=== PATIENT | female | born 1970 | race Caucasian/White ===

== ENCOUNTER 2018-03-23 19:03 | Emergency (ER) | payer SELFPAY ==
[2018-03-23 20:32] LABS: Basophils % (Auto) 0.5 % (0.0-1.8); Eosinophils # (Auto) 0.2 K/mm3 (0.0-0.4); Eosinophils % (Auto) 2.3 % (0.0-4.3); Hematocrit 45.8 % (30.3-42.9); Hemoglobin 15.4 gm/dl (10.1-14.3); Lymphocytes # (Auto) 2.3 K/mm3 (1.2-5.4); Lymphocytes % (Auto) 27.8 % (13.4-35.0); Mean Corpuscular HGB Conc 34 % (30-34); Mean Corpuscular Hemoglobin 31 pg (28-32); Mean Corpuscular Volume 92 fl (79-97); Monocytes # (Auto) 0.5 K/mm3 (0.0-0.8); Monocytes % (Auto) 6.3 % (0.0-7.3); Platelet Count 222 K/mm3 (140-440); Red Blood Count 4.97 M/mm3 (3.65-5.03); Red Cell Distribution Width 13.4 % (13.2-15.2)
[2018-03-23 20:43] LABS: BUN/Creatinine Ratio 26; Blood Urea Nitrogen 13 mg/dL (7-17); Calcium 10.8 mg/dL (8.4-10.2); Hemolysis Index 6
[2018-03-23 21:40] LABS: Bacteria,Urine 1+ /HPF (Negative); Bilirubin,Urine NEG (Negative); Blood,Urine NEG (Negative); Color,Urine Straw (Yellow); Urobilinogen,Urine < 2.0 mg/dL (<2.0)
[2018-03-23] MEDS ORDERED: NACL 0.9% 1000 ML 1,000 ML IV ONE (22:51)
[2018-03-23] MEDS ORDERED: TORADOL IV ONE (22:51)
[2018-03-23] MEDS ORDERED: HumuLIN R IV ONE (22:51)
--- NOTE | 2018-03-24 00:12 | Emergency Department Report ---
ED General Adult HPI - General Chief complaint: Hyperglycemia Stated complaint: SORE THROAT AND HIGH BLOOD SUGAR Time Seen by Provider: 03/23/18 22:32 Source: patient, family Mode of arrival: Ambulatory Limitations: Language Barrier - History of Present Illness Initial comments: 47-year-old female presents to ED with complaint of weakness. Patient also reports nausea, diffuse abdominal pain, body aches, and sore throat 3 days. Denies dysuria, urinary frequency. Patient denies cough. -: days(s) (3) Severity scale (0 -10): 10 Quality: sharp Improves with: none Worsens with: none Associated Symptoms: nausea/vomiting, rash, weakness. denies: chest pain, cough , fever/chills, shortness of breath - Related Data Previous Rx's Medication Instructions Recorded Last Taken Type Hydrocortisone/Aloe Vera 1 applicatio TP BID #28.4 g 03/24/18 Unknown Rx [Hydrocortisone-Aloe 0.5% Cream] Naproxen [Naprosyn] 500 mg PO BID #20 tablet 03/24/18 Unknown Rx Ondansetron [Zofran Odt] 1 tab PO Q8HR PRN #20 tab 03/24/18 Unknown Rx Allergies Allergy/AdvReac Type Severity Reaction Status Date / Time No Known Allergies Allergy Unverified 03/23/18 20:00 ED Review of Systems ROS: Stated complaint: SORE THROAT AND HIGH BLOOD SUGAR Other details as noted in HPI Comment: All other systems reviewed and negative Constitutional: denies: chills, fever ENT: throat pain Respiratory: denies: cough, shortness of breath Cardiovascular: denies: chest pain Gastrointestinal: abdominal pain, nausea. denies: vomiting, diarrhea Genitourinary: denies: dysuria, frequency, hematuria Musculoskeletal: myalgia Skin: rash Neurological: weakness (generalized) ED Past Medical Hx - Past Medical History Hx Psychiatric Treatment: Yes (insomnia,depression) - Surgical History Additional Surgical History: - Social History Smoking Status: Current Some Day Smoker Substance Use Type: Alcohol - Medications Home Medications: Home Medications Medication Instructions Recorded Confirmed Last Taken Type Hydrocortisone/Aloe Vera 1 applicatio TP BID #28.4 g 03/24/18 Unknown Rx [Hydrocortisone-Aloe 0.5% Cream] Naproxen [Naprosyn] 500 mg PO BID #20 tablet 03/24/18 Unknown Rx Ondansetron [Zofran Odt] 1 tab PO Q8HR PRN #20 tab 03/24/18 Unknown Rx ED Physical Exam - General Limitations: Language Barrier General appearance: alert, in no apparent distress - Head Head exam: Present: atraumatic, normocephalic - Eye Eye exam: Present: normal appearance - ENT ENT exam: Present: normal exam, normal orophraynx, mucous membranes moist - Neck Neck exam: Present: normal inspection. Absent: lymphadenopathy - Respiratory Respiratory exam: Present: normal lung sounds bilaterally. Absent: respiratory distress - Cardiovascular Cardiovascular Exam: Present: regular rate, normal rhythm - GI/Abdominal GI/Abdominal exam: Present: soft, tenderness (mild diffuse abdominal tenderness present) - Extremities Exam Extremities exam: Present: normal inspection - Neurological Exam Neurological exam: Present: alert, oriented X3 - Psychiatric Psychiatric exam: Present: normal affect, normal mood - Skin Skin exam: Present: rash (dry, excoriated nonerythematous papular rash to bilateral anterior forearms) ED Course Vital Signs 03/23/18 03/23/18 19:40 22:44 Temperature 97.9 F Pulse Rate 83 Respiratory 18 18 Rate Blood Pressure 132/76 O2 Sat by Pulse 99 Oximetry ED Medical Decision Making - Lab Data Result diagrams: 03/23/18 20:20 03/23/18 20:20 - Medical Decision Making 47-year-old female with three-day history of sore throat, body aches, nausea, abdominal pain. Workup shows elevated glucose of 451, however no signs of DKA. Anion gap and bicarbonate normal. IV fluids and 5 units of insulin were given , along with 1 dose of Toradol. Patient feeling much better. Repeat Accu-Chek 276. Patient advised to follow-up with PCP, and also given return precautions. - Differential Diagnosis strep throat, viral pharyngitis, UTI, viral illness Critical care attestation.: If time is entered above; I have spent that time in minutes in the direct care of this critically ill patient, excluding procedure time. ED Disposition Clinical Impression: Viral illness, Hyperglycemia, Dermatitis Disposition: DC-01 TO HOME OR SELFCARE Is pt being admited?: No Condition: Stable Instructions: Pharyngitis (ED), Viral Syndrome (ED) Prescriptions: Hydrocortisone/Aloe Vera [Hydrocortisone-Aloe 0.5% Cream] 1 applicatio TP BID # 28.4 g Naproxen [Naprosyn] 500 mg PO BID #20 tablet Ondansetron [Zofran Odt] 1 tab PO Q8HR PRN #20 tab PRN Reason: Nausea Referrals: PRIMARY CARE,MD [Primary Care Provider] - 3-5 Days ROGELIO DIAZ MD [Staff Physician] - 3-5 Days
[2018-03-24 00:57] VITALS: BP 138/84
== END 2018-03-24 00:57 | disposition home or self-care (01) ==
LOC: ED 19:03
DX: B34.9 Viral infection, unspecified (principal); L30.9 Dermatitis, unspecified; R73.9 Hyperglycemia, unspecified; F17.200 Nicotine dependence, unspecified, uncomplicated; F32.9 Major depressive disorder, single episode, unspecified; G47.00 Insomnia, unspecified
CPT/HCPCS: 36415; 80048; 81001; 82805; 82962; 85025; 96361; 96374; 96375; 99284; J1885; J7030; J1815